=== PATIENT | male | born 1960 | race Caucasian/White ===

== ENCOUNTER 2017-09-11 07:41 | Day surgery (SDC) | payer MEDICAID ==
[2016-11-08 13:12] VITALS: BMI 30.2
[2017-09-11 08:18] VITALS: RESP 18
--- NOTE | 2017-09-11 10:49 | PCM.SURG1 ---
Surgeon's Initial Post Op Note - Surgeon's Notes Surgeon: LUISA Palmer Ribbon Inker: NONE Type of Anesthesia: Local Pre-Operative Diagnosis: Right neck mass Operative Findings: Large complex right submandibular mass measuring over 4 cm. Post-Operative Diagnosis: Right neck mass Operation Performed: US guided biopsy of right neck mass. Three 20 g core specimen sent for routine histology. Specimen/Specimens Removed: 20 g core x 3 Estimated Blood Loss: EBL {In ML}: 1 Blood Products Given: N/A Drains Used: No Drains Post-Op Condition: Fair Date of Surgery/Procedure: 09/11/17 Time of Surgery/Procedure: 10:45
--- NOTE | 2017-09-11 10:51 | CP.SDSHP ---
Same Day Surgery H & P - History Proposed Procedure: US guided biopsy of right neck mass. Pre-Op Diagnosis: Right neck mass - Allergies Allergies: Allergies No Known Allergies Allergy (Verified 11/08/16 14:35) - Physical Exam Vital Signs: Vital Signs 09/11/17 08:01 Temperature 98 F Pulse Rate 64 Respiratory 18 Rate Blood Pressure 142/83 O2 Sat by Pulse 98 Oximetry Mental Status: Alert & Oriented x3 Neuro: WNL Heart: WNL - Impression Impression: Pt with palpable right submandibular mass. US showed a complex hypoechoic mass measuring 4.3 cm. Plan US guided core biopsy. Pt. Evaluated Today:Candidate for Anesthesia & Procedure: No - Date & Time Date: 09/11/17 Time: 10:30 Short Stay Discharge - Short Stay Discharge Admitting Diagnosis/Reason for Visit: NECK MASS
[2017-09-11 11:32] VITALS: BP 145/80; PULSE 67; TEMP 98.1; O2SAT 99
--- NOTE | 2017-09-12 12:49 | US ---
PROCEDURE: Date of procedure: 09/11/2017 Procedure: Ultrasound-guided biopsy of RIGHT neck mass Ultrasound guidance for biopsy, [id number] HISTORY: Enlarged right submandibular mass TECHNIQUE: Following informed consent and procedure time-out, limited ultrasound patient's Right neck shows a large mass in the submandibular region. The mass measures 4.4 x 2.4 centimeters and is hypoechoic. After the patient neck was prepped and draped in the usual sterile fashion and the skin anesthetized with lidocaine, ultrasound guided core biopsy was performed. A 20 gauge core needle was advanced under ultrasound guidance into the mass. Upon confirmation of needle position, 4x 20 gauge specimens were obtained and sent for routine histology and flow cytometry. A post biopsy ultrasound showed no hematoma IMPRESSION: Ultrasound-guided core biopsy of enlarged right submandibular mass.
== END 2017-09-11 11:15 | disposition home or self-care (01) ==
LOC: C.SPRAD 07:41
PROVIDERS: ATTEND Radiology Vascular & Interventional Radiology
DX: R59.0 Localized enlarged lymph nodes (principal); R22.1 Localized swelling, mass and lump, neck

== ENCOUNTER 2018-05-11 14:54 | Emergency (ER) | payer MEDICAID ==
[2018-05-11 14:54] VITALS: BMI 30.2
[2018-05-11 15:09] VITALS: RESP 18
[2018-05-11 15:45] VITALS: TEMP 98.7
[2018-05-11] MEDS ORDERED: Lidocaine 1% Inj (20ml) INFIL STA (15:53)
[2018-05-11] MEDS ORDERED: Tetanus/Diphtheria Toxoids 0.5 ml Syringe IM ONE ×2 (15:55→16:33)
[2018-05-11] MEDS ORDERED: Lidocaine 2% MPF (5 ml) Inj ONE ×2 (16:00)
[2018-05-11] MEDS ORDERED: Absorbable Gelatin Sponge Size 12-7 ONE (16:31)
--- NOTE | 2018-05-11 16:32 | RAD ---
PROCEDURE: Right Hand Radiographs. HISTORY: Pain and laceration s.p injury COMPARISON: None. FINDINGS: BONES: Normal. No fracture. JOINTS: Minor multi articular degenerative osteoarthritis. SOFT TISSUES: There is disruption -laceration of the distal radial soft tissues 3rd finger. No evidence of opaque foreign bodies. OTHER FINDINGS: None. IMPRESSION: No evidence of acute displaced fracture nor dislocation. . The disruption/laceration distal radial soft tissues 3rd finger
[2018-05-11] MEDS ORDERED: Bacitracin 500 Units/gm Oint Foilpak UD ONE (16:34)
[2018-05-11] MEDS ORDERED: Absorbable Gelatin Sponge Size 12-7 TOP STA (16:35)
[2018-05-11] MEDS ORDERED: Bacitracin 500 Units/gm Oint Foilpak UD TOP ONE (16:35)
--- NOTE | 2018-05-11 16:48 | C.PDOC ---
History Of Present Illness 57 y/o male presents to ED for evaluation of laceration to 2nd, 3rd and 4th digits prior to arrival. Patient states he was working in his home when he accidentally got cut with table saw. Patient denies numbness or weakness. Time Seen by Provider: 05/11/18 15:12 Chief Complaint (Nursing): Abnormal Skin Integrity History Per: Patient History/Exam Limitations: no limitations Onset/Duration Of Symptoms: Sudden Onset Current Symptoms Are (Timing): Still Present Past Medical History Reviewed: Historical Data, Nursing Documentation, Vital Signs Vital Signs: Last Vital Signs Temp 98.7 F 05/11/18 15:44 Pulse 62 05/11/18 17:02 Resp 18 05/11/18 17:02 BP 162/90 H 05/11/18 17:02 Pulse Ox 97 05/11/18 17:07 - Medical History PMH: Bronchitis (11/2016(INFO FROM- ER NOTES)), HTN Surgical History: Appendectomy, Cholecystectomy Family History: States: No Known Family Hx - Social History Hx Alcohol Use: No Hx Substance Use: No - Immunization History Hx Influenza Vaccination: No Review Of Systems Constitutional: Negative for: Fever, Chills Musculoskeletal: Positive for: Hand Pain Skin: Negative for: Rash, Bruising Neurological: Negative for: Weakness, Numbness Physical Exam - Physical Exam Appears: Non-toxic, No Acute Distress Skin: Warm, Dry, No Rash, Other (2cm linear laceration to the fingertip of 2nd digit. 3rd digit: irregular jagged 2cm laceration volar DIP and irregular laceration to lateral fingertip. 4th digit: irregular macerated tissue and flap to fingertip ) Head: Atraumatic, Normacephalic Eye(s): bilateral: Normal Inspection Oral Mucosa: Moist Neck: Normal ROM Chest: Symmetrical Extremity: Normal ROM (tendon function tested and intact), Capillary Refill (<2 seconds), Other (see skin lacerations) Pulses: Right Radial: Normal Neurological/Psych: Oriented x3, Normal Speech, Normal Motor, Normal Sensation ED Course And Treatment O2 Sat by Pulse Oximetry: 97 (RA) Pulse Ox Interpretation: Normal Laceration - Laceration Repair right 2nd digit Wound Length (In cm): 2cm Description Of Wound: Linear Wound Cleansed With: Betadine, Sterile Saline Anesthesia: Lidocaine 2% (digital block) Wound Examination: Irrigated With Saline, No FB With Wound Exploration, No Tendon Injury With Wound Exploration Wound Closure: Suture (2) Suture Technique And Material Used: Interrupted, Nylon (4-O) right 3rd digit Wound Length (In cm): 2 Description Of Wound: Irregular Wound Cleansed With: Betadine, Sterile Saline Anesthesia: Lidocaine 2% Wound Examination: Irrigated With Saline, No FB With Wound Exploration, No Tendon Injury With Wound Exploration Wound Debridement/Revision: Wound Margins Revised Wound Closure: Suture Suture Technique And Material Used: Interrupted (2), Nylon (4-O) Wound Complexity: Intermediate right 4th digit Wound Length (In cm): 2x2 Description Of Wound: Irregular, Contused Tissue Wound Cleansed With: Betadine, Sterile Saline Anesthesia: Lidocaine 2% Wound Examination: Irrigated With Saline, No FB With Wound Exploration, No Tendon Injury With Wound Exploration Wound Debridement/Revision: Wound Debrided (Gelfoam applied) right 3rd digit DIP Wound Length (In cm): 2.5 Description Of Wound: Irregular Wound Cleansed With: Betadine, Sterile Saline Anesthesia: Lidocaine 2% Wound Examination: Irrigated With Saline, No FB With Wound Exploration, No Tendon Injury With Wound Exploration Wound Debridement/Revision: Wound Margins Revised Wound Closure: Suture Suture Technique And Material Used: Interrupted (2), Mattress (1), Nylon (4-0) Wound Complexity: Intermediate Medical Decision Making Medical Decision Making: Impression: Hand injury and laceration of multiple digits Plan: XRay to rule out fracture or foreign body Hand consult Progress: DR Payne also examined patient and agreed with hand consult XRay viewed by ny shows no fracture or foreign body. [address] Garcia. Obtain patient's consent to take pictures and send to physician. Pictures sent. As per Dr Garcia recommends thorough wash and to suture and have patient follow up. Wound closed with total of 7 sutures, see full procedure note. Patient tolerated well. Bacitracin and non-adherent dressing was applied. Patient given verbal and written instructions on wound care and to follow up for wound check and in 10 days for suture removal. Disposition Counseled Patient/Family Regarding: Diagnosis, Need For Followup, Rx Given - Disposition Referrals: Solomon Garcia MD [Staff Provider] - Paris Lieberman MD [Staff Provider] - Disposition: HOME/ ROUTINE Disposition Time: 16:49 Condition: STABLE Additional Instructions: Remove dressing in 24 hours. Wash gently with soap and water. Keep area clean and dry. Change dressing 1-2 times daily. Can apply antibiotic ointment to area. The gelfoam on ring finger will fall off in few days, do not remove. Have wound checked in 2-3 days in the clinic or with Dr Garcia. Return to ER if fever occurs, redness or swelling around wound, pus in the wound. Suture removal in 10 days Retire el vendaje en 24 horas. Lave suavemente con agua y jabn. Mantenga el wilton limpia y seca. Cambiar el vendaje 1-2 veces al da. Puede aplicar ungento antibitico en el [place]. La esponja de gel en el cuarto dedo se caer en unos d as, no la retire. Hgase revisar la herida en 2-3 anderson en la clnica o con el Dr. Garcia. Vuelva a la monika de emergencias si presenta fiebre, enrojecimiento o hinchazn alrededor de la herida, pus en la herida. Eliminacin de sutura en 10 anderson Prescriptions: Cephalexin [cephalexin] 500 mg PO Q12 #14 cap Instructions: Laceration Repair With Stitches (DC) Forms: [employer] (Senegalese), Work Excuse Print Language: LITHUANIAN - POA Present On Arrival: Falls Or Trauma (hand injury) - Clinical Impression Clinical Impression: Laceration of multiple sites of hand and fingers - PA / BLANKET WEAVER / Resident Statement MD/DO has reviewed & agrees with the documentation as recorded. - Scribe Statement The provider has reviewed the documentation as recorded by the Scribbeatrice Villalpando All medical record entries made by the Arelisibbeatrice were at my direction and personally dictated by me. I have reviewed the chart and agree that the record accurately reflects my personal performance of the history, physical exam, medical decision making, and the department course for this patient. I have also personally directed, reviewed, and agree with the discharge instructions and disposition.
[2018-05-11 17:03] VITALS: BP 162/90; PULSE 62
[2018-05-11 17:07] VITALS: O2SAT 97
== END 2018-05-11 17:16 | disposition home or self-care (01) ==
LOC: C.ER 14:54
DX: S61.210A Laceration without foreign body of right index finger without damage to nail, initial encounter (principal); S61.212A Laceration without foreign body of right middle finger without damage to nail, initial encounter; S61.214A Laceration without foreign body of right ring finger without damage to nail, initial encounter; W31.2XXA Contact with powered woodworking and forming machines, initial encounter; Y92.009 Unspecified place in unspecified non-institutional (private) residence as the place of occurrence of the external cause